=== PATIENT | female | born 1940 | race Caucasian/White ===

== ENCOUNTER 2020-06-10 04:39 | Day surgery (SDC) | payer OTHER, MEDICARE ==
[2020-06-08 15:41] VITALS: BMI 37.1
[2020-06-10 09:21] VITALS: TEMP 98.3
[2020-06-10 10:23] VITALS: BP 107/43; PULSE 65
== END 2020-06-10 09:52 | disposition home or self-care (01) ==
LOC: JASU-ENDO 04:39
PROVIDERS: ATTEND Internal Medicine Gastroenterology
PROC: 0DJD8ZZ Inspection of Lower Intestinal Tract, Via Natural or Artificial Opening Endoscopic (ICD-10-PCS; principal; 2020-06-10 08:56)
DX: Z12.11 Encounter for screening for malignant neoplasm of colon (principal); K57.30 Diverticulosis of large intestine without perforation or abscess without bleeding; K64.8 Other hemorrhoids; Z86.010 Personal history of colon polyps; I10 Essential (primary) hypertension; E66.01 Morbid (severe) obesity due to excess calories; E11.9 Type 2 diabetes mellitus without complications

== ENCOUNTER 2021-09-25 16:26 | Emergency (ER) | payer OTHER, MEDICARE ==
[2021-09-25 16:58] VITALS: BP 109/62; PULSE 79; TEMP 98.2; BMI 30.2
== END 2021-09-25 17:01 | disposition home or self-care (01) ==
LOC: FER 16:26
DX: S80.211A Abrasion, right knee, initial encounter (principal); W22.8XXA Striking against or struck by other objects, initial encounter
CPT/HCPCS: 99282-25

== ENCOUNTER → 2024-09-15 | Day surgery (SDC) | payer OTHER, MEDICARE ==
[2024-09-12 14:52] VITALS: BMI 33.8
[2024-09-15 14:20] VITALS: TEMP 98.3
[2024-09-15 15:12] VITALS: BP 136/59; PULSE 68; RESP 20
== END | disposition home or self-care (01) ==
LOC: JASU-ENDO 04:52
PROVIDERS: ATTEND Internal Medicine Gastroenterology
PROC: 0DB78ZX Excision of Stomach, Pylorus, Via Natural or Artificial Opening Endoscopic, Diagnostic (ICD-10-PCS; 2024-09-15)
PROC: 0DB68ZX Excision of Stomach, Via Natural or Artificial Opening Endoscopic, Diagnostic (ICD-10-PCS; 2024-09-15)
PROC: 0DB28ZX Excision of Middle Esophagus, Via Natural or Artificial Opening Endoscopic, Diagnostic (ICD-10-PCS; 2024-09-15)
PROC: 0DB38ZX Excision of Lower Esophagus, Via Natural or Artificial Opening Endoscopic, Diagnostic (ICD-10-PCS; principal; 2024-09-15 11:45)
DX: K29.50 Unspecified chronic gastritis without bleeding (principal); K31.7 Polyp of stomach and duodenum
CPT/HCPCS: 82962; 88104; 88305-TC; 88312-TC; 88342-TC

== ENCOUNTER 2025-01-02 09:40 | Inpatient (IN) | payer OTHER, MEDICARE ==
[2025-01-02 09:48] VITALS: BMI 31.6
[2025-01-02] MEDS: LACTATED RINGERS SOLUTION 1000 ML INFUS.BAG IV ONE (10:33)
[2025-01-02] MEDS: BUDESONIDE 0.25 MG/2ML INH SUSP VIAL NEB ONE (10:33)
[2025-01-02 10:42] LABS: ABSOLUTE IMMATURE GRANULOCYTES 0.05 x10^3/uL (0.0-0.031); BASOPHILS # 0.06 x10^3/uL (0.01-0.08); EOSINOPHIL % 0.6 % (0.7-5.8); EOSINOPHILS # 0.05 x10^3/uL (0.04-0.36); HEMOGLOBIN 12.8 g/dL (11.2-15.7); MCHC 31.2 g/dl (32.2-35.5); MEAN CELL VOLUME 87.4 fl (79.4-94.8); MEAN PLT VOLUME 10.5 fl (9.4-12.3); MONOCYTE # 0.44 x10^3/uL (0.24-0.86); MONOCYTE % 5.1 % (4.7-12.5); PLATELET COUNT 234 x10^3/uL (182-369); RDW 13.2 % (12.5-17.0)
[2025-01-02 11:11] LABS: POTASSIUM 3.9 mmol/L (3.5-5.1)
[2025-01-02 11:12] LABS: CALCIUM 10.1 mg/dL (8.5-10.1)
[2025-01-02 11:13] LABS: ALBUMIN 3.8 g/dl (3.4-5.0); BLOOD UREA NITROGEN 34.8 mg/dL (7-18); MAGNESIUM 2.4 mg/dL (1.8-2.4)
[2025-01-02 11:16] LABS: CREATININE 1.5 mg/dL (0.55-1.3)
[2025-01-02 11:18] LABS: BILIRUBIN,TOTAL 0.7 mg/dL (0.2-1); TOT PROT 7.7 g/dl (6.4-8.2)
[2025-01-02] MEDS: DEXTROSE 5%-NORMAL SALINE 1,000 ML IV SCH (13:07)
[2025-01-02] MEDS ORDERED: ALPRAZolam 0.25 MG TABLET ONE (14:01)
[2025-01-02] MEDS: ALPRAZolam 0.25 MG TABLET PO PRN (14:03)
[2025-01-02] MEDS: SODIUM CHLORIDE 0.9%/KCL 20 MEQ/1,000 ML INFUS.BAG IV SCH (14:26)
[2025-01-02] MEDS: SODIUM CHLORIDE FOR INHALATION 3 ML VIAL.NEB IH ONE (14:45)
[2025-01-02] MEDS ORDERED: ALBUTEROL SO4 HFA INHALER IH PRN (15:07)
[2025-01-02] MEDS: INSULIN ASPART SLIDING SCALE (NOVOLOG) 1 VIAL SQ SCH (17:00)
[2025-01-02] MEDS ORDERED: ALBUTEROL SO4 0.083% IH SOL 2.5 MG/3 ML VIAL.NEB. NEB ONE (17:10)
[2025-01-02] MEDS: methylPREDNISolone NA SUCC 40 MG/1 ML VIAL IVPUSH ONE (17:15)
[2025-01-02] MEDS: ACETYLCYSTEINE 20% 200MG/ML 4 ML VIAL *FOR ORAL / INH USE ONLY NEB ONE (17:20)
[2025-01-02] MEDS: ALBUTEROL SO4 0.083% IH SOL 2.5 MG/3 ML VIAL.NEB. NEB SCH ×2 (17:20→22:10)
[2025-01-02] MEDS: ROSUVASTATIN CA 20 MG TABLET PO SCH (21:32)
[2025-01-02] MEDS: methylPREDNISolone NA SUCC 40 MG/1 ML VIAL IVPUSH SCH (21:32)
[2025-01-02] MEDS: PANTOPRAZOLE 40 MG TABLET PO SCH (21:32)
[2025-01-02] MEDS: BUDESONIDE/FORMETEROL FUMARATE 160/4.5 mcg INHALER IH SCH (21:44)
[2025-01-02] MEDS ORDERED: ALBUTEROL SO4 0.083% IH SOL 2.5 MG/3 ML VIAL.NEB. NEB SCH (22:00)
[2025-01-02] MEDS: ACETYLCYSTEINE 20% 200MG/ML 4 ML VIAL *FOR ORAL / INH USE ONLY NEB SCH (22:10)
[2025-01-03] MEDS: LEVOTHYROXINE NA 88 MCG TABLET (FP) PO SCH (06:12)
[2025-01-03] MEDS ORDERED: LEVOTHYROXINE NA 88 MCG TABLET (FP) PO ONE (07:00)
[2025-01-03 08:52] LABS: HEMATOCRIT 37.8 % (34.1-44.9); HEMOGLOBIN 11.7 g/dL (11.2-15.7); MEAN CELL VOLUME 88.5 fl (79.4-94.8); MEAN PLT VOLUME 11.2 fl (9.4-12.3); PLATELET COUNT 227 x10^3/uL (182-369); RDW 13.3 % (12.5-17.0)
[2025-01-03 09:13] LABS: POTASSIUM 3.8 mmol/L (3.5-5.1)
[2025-01-03 09:17] LABS: BLOOD UREA NITROGEN 30.5 mg/dL (7-18); CALCIUM 9.6 mg/dL (8.5-10.1)
[2025-01-03 09:18] LABS: MAGNESIUM 2.3 mg/dL (1.8-2.4)
[2025-01-03 09:20] LABS: CREATININE 1.5 mg/dL (0.55-1.3); PHOSPHOROUS 3.8 mg/dL (2.5-4.9)
[2025-01-03] MEDS: ASPIRIN COATED 81 MG TABLET.EC PO SCH (09:41)
[2025-01-03] MEDS: metoPROLOL SUCCINATE 25 MG TAB.SR.24H (FP) PO SCH (09:41)
[2025-01-03] MEDS: amLODIPine BESYLATE 5 MG TABLET (FP) PO SCH (11:45)
[2025-01-03] MEDS: INSULIN GLARGINE (LANTUS) 100 UNITS/ML UNITS SQ SCH ×2 (12:16→21:45)
[2025-01-04 09:33] LABS: POTASSIUM 3.9 mmol/L (3.5-5.1)
[2025-01-04 09:41] LABS: ALBUMIN 3.4 g/dl (3.4-5.0); CALCIUM 9.6 mg/dL (8.5-10.1)
[2025-01-04 09:44] LABS: CREATININE 1.5 mg/dL (0.55-1.3)
[2025-01-04 09:46] LABS: BILIRUBIN,TOTAL 0.4 mg/dL (0.2-1)
[2025-01-04 09:49] LABS: TOT PROT 6.8 g/dl (6.4-8.2)
[2025-01-05 04:56] VITALS: RESP 20
[2025-01-05] MEDS: LEVOTHYROXINE NA 100 MCG TABLET (FP) PO SCH (06:16)
[2025-01-05 09:05] LABS: POTASSIUM 4.5 mmol/L (3.5-5.1)
[2025-01-05 09:07] LABS: CALCIUM 9.2 mg/dL (8.5-10.1)
[2025-01-05 09:08] LABS: ALBUMIN 3.1 g/dl (3.4-5.0); BLOOD UREA NITROGEN 38.4 mg/dL (7-18); MAGNESIUM 2.5 mg/dL (1.8-2.4)
[2025-01-05 09:11] LABS: CREATININE 1.5 mg/dL (0.55-1.3); PHOSPHOROUS 2.9 mg/dL (2.5-4.9)
[2025-01-05 09:12] LABS: BILIRUBIN,TOTAL 0.5 mg/dL (0.2-1)
[2025-01-05 09:13] LABS: TOT PROT 6.6 g/dl (6.4-8.2)
[2025-01-05] MEDS: predniSONE 20 MG TABLET (UD) PO SCH (10:08)
[2025-01-05 14:20] VITALS: BP 151/71; TEMP 98.2
[2025-01-05 15:58] VITALS: PULSE 92
== END 2025-01-05 18:27 | disposition home or self-care (01) | DRG 156 ==
LOC: JER 09:40 → JERBED 11:52 → J5S 16:40 → OBSVTOIN 19:27
PROVIDERS: ADMIT Student in an Organized Health Care Education/Training Program
DX: J38.00 Paralysis of vocal cords and larynx, unspecified (principal); E86.0 Dehydration; E03.9 Hypothyroidism, unspecified; K21.9 Gastro-esophageal reflux disease without esophagitis; I12.9 Hypertensive chronic kidney disease with stage 1 through stage 4 chronic kidney disease, or unspecified chronic kidney disease; E11.22 Type 2 diabetes mellitus with diabetic chronic kidney disease; N18.9 Chronic kidney disease, unspecified; G47.33 Obstructive sleep apnea (adult) (pediatric); R06.03 Acute respiratory distress
CPT/HCPCS: 36415; 71045-TC-FY; 80048; 80053; 82962; 83735; 84100; 85025; 85027; 93005; 93010; 94640; 94660; 97116-GP; 97161-GP; 99285-25; G0378